=== PATIENT | female | born 1965 | race Caucasian/White ===

== ENCOUNTER 2019-01-26 06:30 | Day surgery (SDC) | payer OTHER, MEDICARE ==
[2019-01-25 08:33] VITALS: BMI 30.8
[2019-01-26] MEDS ORDERED: MIDAZOLAM HCL 2 MG/2 ML SINGLE DOSE VIAL ONE ×2 (07:11→08:14)
[2019-01-26] MEDS ORDERED: ROPIVACAINE HCL 0.5% 30ML VIAL ONE (07:11)
--- NOTE | 2019-01-26 07:45 | HP ---
History & Physical Update - History History: No Change - Physical Physical: No Change - Assessment Assessment: No Change - Plan Plan: No Change (no change since last visit with Dr Jefferson on 01/24/19)
[2019-01-26] MEDS ORDERED: PROPOFOL 20 ML ONE ×2 (08:04)
[2019-01-26] MEDS ORDERED: ceFAZolin SODIUM 1 GM VIAL IVPB ONE (08:15)
--- NOTE | 2019-01-26 09:14 | OP ---
Operative Note - Note: Operative Date: 01/26/19 Pre-Operative Diagnosis: right shoulder pain/impingement Post-Operative Diagnosis: Same as Pre-op Surgeon: Lwarence Jefferson Blindmaker: Vivi Roberson Anesthesiologist/SILK PRESSER: Norberto Gustafson Anesthesia: Local, MAC Estimated Blood Loss (mls): 10 Fluid Volume Replaced (mls): 300 Operative Report Dictated: Yes
[2019-01-26] MEDS ORDERED: PROMETHAZINE HCL 25 MG/1 ML VIAL IVPUSH PRN (10:12)
[2019-01-26] MEDS ORDERED: ONDANSETRON 4 MG/2 ML VIAL IVPUSH PRN (10:12)
[2019-01-26] MEDS ORDERED: oxyCODONE HCL 5 MG TABLET PO PRN ×2 (10:12)
--- NOTE | 2019-01-26 10:55 | SURG ---
Surgery Fine Grade Bulldozer Operator Note Fine Grade Bulldozer Operator: Vivi Roberson PA-C Date of Service: 01/26/19 Diagnosis: Right shoulder pain, impingement Procedure: right shoulder arthroscopy with subacrominal decompression I was present for the entirety of the operative procedure. For further detail, please refer to operative report. Visit type - Case Type Case Type: Scheduled - Emergency Emergency Visit: No - New patient This patient is new to me today: Yes Date on this admission: 01/26/19
[2019-01-26 11:45] VITALS: BP 109/60; PULSE 68; TEMP 98
--- NOTE | 2019-01-26 11:49 | OP ---
DATE OF OPERATION: 01/26/2019 PREOPERATIVE DIAGNOSIS: Frozen right shoulder with impingement and tearing of the rotator cuff. POSTOPERATIVE DIAGNOSES: 1. Frozen right shoulder with adhesive capsulitis. 2. Glenoid labral tear. 3. Rotator cuff tear. 4. Extensive joint debris. 5. Impingement from the lateral acromion. 6. Impingement from the lateral clavicle including the articular portion. PROCEDURES PERFORMED: 1. Manipulation of right shoulder under anesthesia with lysis and resection of adhesions. 2. Glenoid labral resection. 3. Rotator cuff debridement for partial-thickness tear. 4. Extensive joint debridement. 5. Acromioplasty. 6. Lateral clavicular resection, a Magdiel procedure. SURGEON: Lawrence Jefferson MD URBAN GARDENING SPECIALIST: FRANCO Pal ANESTHESIA: Regional interscalene block. ANESTHESIOLOGIST: Lyle Knox MD DESCRIPTION OF PROCEDURE: The procedure consisted of the patient being brought into the operating room and gently transferred from the stretcher to the operating room table with all bony prominences well padded. The right shoulder was prepared and draped in a sterile fashion. The patient was given intravenous antibiotics and copious irrigation throughout the procedure to minimize risk for infection. A complete risk, benefit, alternative discussion was conducted with the patient, which was inclusive of, but not limited to, infection, bleeding, , paralysis, increased pain, need for repeat surgery. Patient asked questions, understood the procedure, and desired to proceed with surgical treatment. Following sterile preparation and draping of the right shoulder, the patient had been placed in gentle traction approximately 8 pounds. The patient also had been placed in the right side up lateral decubitus position with all bony prominences well padded. A pillow was placed below the legs and a pillow between the legs to protect the neurovascular structures to the legs. The patient was supported by a pneumatic contouring patient support. An axillary roll had been placed to protect the lower shoulder. The neck was kept in good alignment throughout the procedure by the anesthesiologist, and the face was protected by the anesthesiologist throughout the procedure. Gentle manipulation had been performed of the shoulder with initial range of movement abduction limited to 90 degrees, flexion to 95 degrees, extension 10 degrees, internal rotation 70 degrees, external rotation 10 degrees. At the end of the gentle flow manipulation, abduction was to 165 degrees, flexion to 165 degrees, extension 30 degrees, internal rotation 90 degrees, external rotation was 25 degrees. The glenohumeral joint was evaluated. The anterior, posterior, and lateral portals were used to introduce the arthroscope and arthroscopic instruments. The anterior portal was fabricated from the inside out method over a transfer bernardo to protect the neurovascular structures in the anterior shoulder. The glenohumeral joint was evaluated. There was noted to be adhesions within the joint. These were lysed and resected allowing movement of the joint. The anterior and posterior recesses were without loose body or plica. There was noted to be extensive joint debris in the glenohumeral joint, and extensive joint debridement was performed. The biceps tendon was found to be intact as was the middle glenohumeral ligament. There was noted to be tearing of the rotator cuff, which was probed and found to be partial thickness, and this was debrided using shaver and radiofrequency wand. The glenoid labrum was evaluated. There was noted to be tearing of the glenoid labrum, and a partial glenoid labral resection was performed. The assistant finance director held the arthroscope as I used the shaver and wand and was vital for safe surgery. The shoulder joint was then copiously irrigated, and our attention was turned to the subacromial space. There was noted to be extensive inflamed bursal tissue, and a bursectomy was performed, which was extensive. The rotator cuff on the bursal side was found to have no tear. There was noted to be an edge of bone on the lateral acromion creating impingement, and this was debrided using shaver and radiofrequency wand. The high-speed bur was then used to resect a wedge of bone thick anteriorly, thin posteriorly. The lateral clavicle was also creating impingement. This was debrided, and high-speed bur and shaver was used to resect the lateral clavicle that was creating impingement. The patient was then given copious irrigation. The wounds were closed with 4-0 undyed Vicryl followed by Steri-Strips, Xeroform, 4 x 4's, Combine, Elastoplast, and a shoulder immobilizer. The patient was then gently awoken from anesthesia without incised and transferred from the operating room to the recovery room in satisfactory condition. There were no intraoperative complications. Carmencita [id number] MTDD
--- NOTE | 2019-01-31 14:09 | PATH ---
Surgical Pathology Report Patient Name: MO CAN [facility]. Rec. #: [id number] /Age/Gender: 1965 (Age: 53) / F Account: [id number] Location: [facility] AMBULATORY Taken: 01/26/2019 Received: 01/26/2019 Reported: 01/31/2019 Physicians: Lawrence Jefferson M.D. Specimen(s) Received SHAVINGS RIGHT SHOULDER Clinical History Rotator cuff tear Final Diagnosis SHOULDER, RIGHT, ARTHROSCOPIC SHAVINGS: FIBROSYNOVIAL TISSUE, FIBROCOLLAGENOUS TISSUE, SCANT BONE AND CARTILAGE. Electronically Signed Vivi Schaefer M.D. Gross Description Received in formalin, labeled "shoulder shavings, right" is a 2.2 x 1.3 x 0.2 cm aggregate of silva-white tissue. Printmaker tissue is submitted in one cassette. AE/01/29/2019 ebram/01/29/2019
== END 2019-01-26 11:45 | disposition home or self-care (01) ==
LOC: FASU 06:30
PROVIDERS: ATTEND Orthopaedic Surgery
PROC: 0RQJ4ZZ Repair Right Shoulder Joint, Percutaneous Endoscopic Approach (ICD-10-PCS; 2019-01-26)
PROC: 0RBJ4ZZ Excision of Right Shoulder Joint, Percutaneous Endoscopic Approach (ICD-10-PCS; 2019-01-26)
PROC: 0PB94ZZ Excision of Right Clavicle, Percutaneous Endoscopic Approach (ICD-10-PCS; 2019-01-26)
PROC: 0LQ14ZZ Repair Right Shoulder Tendon, Percutaneous Endoscopic Approach (ICD-10-PCS; principal; 2019-01-26 08:26)
DX: M75.111 Incomplete rotator cuff tear or rupture of right shoulder, not specified as traumatic (principal); M75.01 Adhesive capsulitis of right shoulder; M24.011 Loose body in right shoulder; M75.41 Impingement syndrome of right shoulder
CPT/HCPCS: 88304-TC